=== PATIENT | male | born 1940 | race Caucasian/White ===

== ENCOUNTER 2021-10-06 13:28 | Outpatient (CLI) | payer MEDICARE | END 2021-10-06 13:29 | disposition home or self-care (01) | LOC: BICULT 13:28 | PROVIDERS: ATTEND Internal Medicine Nephrology | DX: Z01.818 Encounter for other preprocedural examination (principal) | CPT/HCPCS: 93970 ==

== ENCOUNTER 2021-12-08 08:18 | Day surgery (SDC) | payer MEDICARE ==
[2021-12-04 10:59] VITALS: BMI 23.4
[2021-12-08 10:09] VITALS: TEMP 97.1
[2021-12-08 10:41] VITALS: BP 155/65
[2021-12-08] MEDS ORDERED: Iopamidol 300 61% 50 ML VIAL FS ONE (15:57)
== END 2021-12-08 11:30 | disposition home or self-care (01) ==
LOC: SPEC 08:18
PROVIDERS: ATTEND Specialist
PROC: B51W1ZZ Fluoroscopy of Dialysis Shunt/Fistula using Low Osmolar Contrast (ICD-10-PCS; principal; 2021-12-08)
DX: T82.590A Other mechanical complication of surgically created arteriovenous fistula, initial encounter (principal); I12.0 Hypertensive chronic kidney disease with stage 5 chronic kidney disease or end stage renal disease; E11.22 Type 2 diabetes mellitus with diabetic chronic kidney disease; N18.6 End stage renal disease; Z79.02 Long term (current) use of antithrombotics/antiplatelets; Z79.4 Long term (current) use of insulin; Z79.899 Other long term (current) drug therapy; Z88.5 Allergy status to narcotic agent; Z95.0 Presence of cardiac pacemaker; Z99.2 Dependence on renal dialysis
CPT/HCPCS: 36901; Q9967

== ENCOUNTER 2022-01-26 08:09 | Day surgery (SDC) | payer MEDICARE ==
[2022-01-21 12:19] VITALS: BMI 23.5
[2022-01-26] MEDS ORDERED: Heparin 1,000 UNITS/ML VIAL ONE (08:58)
[2022-01-26 09:00] VITALS: BP 133/61; TEMP 97.9
[2022-01-26] MEDS ORDERED: Fentanyl 100 MCG/2 ML VIAL ONE (09:06)
[2022-01-26] MEDS ORDERED: Lidocaine 1% MPF 2 ML VIAL ONE (09:06)
[2022-01-26] MEDS ORDERED: Sodium Bicarbonate 2.5 MEQ/5 ML VIAL ONE (09:06)
== END 2022-01-26 11:45 | disposition home or self-care (01) ==
LOC: SPEC 08:09
PROVIDERS: ATTEND Specialist
PROC: 05L Upper Veins, Occlusion (ICD-10-PCS; principal; 2022-01-26)
DX: T82.590A Other mechanical complication of surgically created arteriovenous fistula, initial encounter (principal); N18.6 End stage renal disease; Z88.5 Allergy status to narcotic agent; Z99.2 Dependence on renal dialysis
CPT/HCPCS: 36901; 75898; J1644; J3010

== ENCOUNTER 2022-07-31 14:48 | Inpatient (IN) | payer MEDICARE ==
[2022-07-31 18:08] VITALS: BMI 26.9
[2022-07-31] MEDS ORDERED: cloNIDine 0.2 MG TAB PO PRN (18:38)
[2022-07-31] MEDS ORDERED: ALPRAZolam 0.25 MG TAB PO PRN (18:38)
[2022-07-31] MEDS ORDERED: Vancomycin HCl 1 GM in Sodium Chloride 0.9% 250 ML 250 ML IVPB SCH (18:45)
[2022-07-31] MEDS ORDERED: HumaLOG 300 UNITS/3 ML VIAL SC PRN (18:52)
[2022-07-31] MEDS ORDERED: Dextrose 5% in Water 1,000 ML IV PRN (18:52)
[2022-07-31] MEDS ORDERED: Dextrose 50% Abboject 50 ML SYRINGE SLOW IVP PRN (18:52)
[2022-07-31] MEDS ORDERED: Vancomycin Diaylsis Sliding Scale (Wt 71-99) FS SCH (19:30)
[2022-07-31] MEDS: Cefepime 0.5 GM, Admixture Fee 1 EACH in Sodium Chloride 0.9% 100 ML IVPB SCH (20:40)
[2022-07-31] MEDS: Amlodipine 5 MG TAB PO SCH (20:41)
[2022-07-31] MEDS: Famotidine 20 MG TAB PO SCH (20:41)
[2022-07-31] MEDS: Sevelamer Carbonate 800 MG TAB PO SCH (20:41)
[2022-07-31] MEDS: hydrOXYzine 25 MG TAB PO SCH (20:42)
[2022-07-31] MEDS: Losartan 25 MG TAB PO SCH (20:42)
[2022-07-31] MEDS: Insulin Glargine 30 UNITS/0.3 ML VIAL SC SCH (20:42)
[2022-07-31] MEDS: Heparin 5,000 UNITS/ML VIAL SC SCH (20:42)
[2022-07-31] MEDS: Polyethylene Glycol 3350 17 GM Packet PO SCH (20:43)
[2022-07-31] MEDS ORDERED: Vancomycin HCl 750 MG in Sodium Chloride 0.9% 250 ML 250 ML IVPB SCH (21:00)
[2022-08-01] MEDS: Acetaminophen 325 MG TAB PO PRN (02:07)
[2022-08-01] MEDS: Sevelamer Carbonate 800 MG TAB PO SCH ×3 (08:02→17:35)
[2022-08-01] MEDS: Clopidogrel Bisulfate 75 MG TAB PO SCH (08:03)
[2022-08-01] MEDS: hydrOXYzine 25 MG TAB PO SCH ×4 (08:06→20:42)
[2022-08-01] MEDS: Losartan 25 MG TAB PO SCH ×2 (08:07→20:42)
[2022-08-01] MEDS: Heparin 5,000 UNITS/ML VIAL SC SCH ×3 (08:14→20:42)
[2022-08-01] MEDS: Polyethylene Glycol 3350 17 GM Packet PO SCH ×2 (08:14→20:43)
[2022-08-01 08:48] LABS: Hemoglobin 10.6 g/dL (14.0-18.0); Mean Corpuscular HGB CONC 32.4 g/dL (32.0-36.0); Mean Platelet Volume 10.2 fL (7.4-10.4); Platelet Count 134 10x3/uL (130-400); RBC Distribution Width 14.5 % (11.5-14.5); Red Blood Cell (RBC) Count 3.12 mill/uL (4.70-6.10); White Blood Cell (WBC) Count 6.7 10x3/uL (4.8-10.8)
[2022-08-01 09:05] LABS: Anion Gap 20 mmol/L (10-20); BUN (Urea Nitrogen) 61 mg/dL (8.4-25.7); Calc. Creatinine Clearance 11 mL/min (70-130); Calcium 9.6 mg/dL (7.8-10.44); Carbon Dioxide 22 mmol/L (23-31); Chloride 95 mmol/L (98-107); Estimated GFR 10; Glucose 75 mg/dL (83-110); Sodium 131 mmol/L (136-145); Vancomycin, Random 21.2 ug/mL (See Comment)
[2022-08-01 09:14] LABS: #Basophils 0.1 thou/uL (0.0-0.2); #Eosinphils 0.2 thou/uL (0.0-0.7); #Lymphocytes 1.3 thou/uL (1.20-3.40); #Monocytes 0.8 thou/uL (0.11-0.59); #Neutrophils 4.3 thou/uL (1.40-6.50); %Basophils 0.8 % (0.0-1.0); %Eosinophils 2.6 % (0.0-10.0); %Monocytes 11.4 % (0.0-10.0); %Neutrophils 65.2 % (42.0-75.0); MDiff Complete? YES; Macrocytosis SLIGHT = 6-15 cells (100X) (0-5/hpf); Platelet Morphology Comment Appears Adequate; Polychromasia SLIGHT = 2-3 cells (100X) (0-2/hpf)
[2022-08-01 09:15] LABS: Critical Call Chemistry 2no.emm20915; Potassium 6.2 mmol/L (3.5-5.1)
[2022-08-01] MEDS ORDERED: Epoetin (ESRD) 20,000 UNITS/ML SC SCH (10:15)
[2022-08-01] MEDS: EPOETIN ALFA-EPBX (ESRD) 10,000 UNIT/ML VIAL SC SCH (14:57)
[2022-08-01] MEDS ORDERED: Vancomycin 250 MG in Sodium Chloride 0.9% 100 ML IVPB SCH (17:00)
[2022-08-01] MEDS: Cefepime 0.5 GM, Admixture Fee 1 EACH in Sodium Chloride 0.9% 100 ML IVPB SCH (20:39)
[2022-08-01] MEDS: Atorvastatin Calcium 10 MG TAB PO SCH (20:42)
[2022-08-01] MEDS: Amlodipine 5 MG TAB PO SCH (20:42)
[2022-08-01] MEDS: Insulin Glargine 30 UNITS/0.3 ML VIAL SC SCH (20:43)
[2022-08-01] MEDS: Famotidine 20 MG TAB PO SCH (20:43)
[2022-08-02 05:44] LABS: Anion Gap 14 mmol/L (10-20); BUN (Urea Nitrogen) 39 mg/dL (8.4-25.7); Calc. Creatinine Clearance 16 mL/min (70-130); Calcium 9.1 mg/dL (7.8-10.44); Carbon Dioxide 28 mmol/L (23-31); Chloride 99 mmol/L (98-107); Estimated GFR 16; Potassium 5.5 mmol/L (3.5-5.1); Sodium 135 mmol/L (136-145)
[2022-08-02 05:47] LABS: Glucose 35 mg/dL (83-110)
[2022-08-02] MEDS: Sevelamer Carbonate 800 MG TAB PO SCH ×3 (06:59→16:43)
[2022-08-02] MEDS: hydrOXYzine 25 MG TAB PO SCH (09:48)
[2022-08-02] MEDS: Clopidogrel Bisulfate 75 MG TAB PO SCH (09:48)
[2022-08-02] MEDS: Aspirin 81 mg Enteric Coated Tablet PO SCH (09:48)
[2022-08-02] MEDS: Polyethylene Glycol 3350 17 GM Packet PO SCH ×2 (09:48→20:09)
[2022-08-02] MEDS: Losartan 25 MG TAB PO SCH (09:48)
[2022-08-02] MEDS: Heparin 5,000 UNITS/ML VIAL SC SCH ×3 (09:50→20:09)
[2022-08-02 11:38] LABS: #Eosinphils 0.2 thou/uL (0.0-0.7); #Lymphocytes 1.4 thou/uL (1.20-3.40); #Monocytes 0.7 thou/uL (0.11-0.59); #Neutrophils 4.2 thou/uL (1.40-6.50); %Basophils 0.5 % (0.0-1.0); %Eosinophils 3.8 % (0.0-10.0); %Lymphocytes 20.8 % (21.0-51.0); Hemoglobin 9.1 g/dL (14.0-18.0); Mean Corpuscular HGB CONC 32.4 g/dL (32.0-36.0); Mean Corpuscular Hemoglobin 34.2 pg (27.0-31.0); Mean Platelet Volume 10.3 fL (7.4-10.4); Platelet Count 146 10x3/uL (130-400); RBC Distribution Width 14.8 % (11.5-14.5); Red Blood Cell (RBC) Count 2.67 mill/uL (4.70-6.10); White Blood Cell (WBC) Count 6.5 10x3/uL (4.8-10.8)
[2022-08-02 11:59] LABS: Anion Gap 17 mmol/L (10-20); BUN (Urea Nitrogen) 42 mg/dL (8.4-25.7); Calc. Creatinine Clearance 15 mL/min (70-130); Calcium 9.2 mg/dL (7.8-10.44); Carbon Dioxide 26 mmol/L (23-31); Chloride 96 mmol/L (98-107); Estimated GFR 15; Glucose 91 mg/dL (83-110); Potassium 5.6 mmol/L (3.5-5.1); Sodium 133 mmol/L (136-145)
[2022-08-02] MEDS: hydrALAZINE 25 MG TAB PO SCH ×2 (15:40→20:08)
[2022-08-02] MEDS: Cefepime 0.5 GM, Admixture Fee 1 EACH in Sodium Chloride 0.9% 100 ML IVPB SCH (20:06)
[2022-08-02] MEDS: Insulin Glargine 30 UNITS/0.3 ML VIAL SC SCH (20:08)
[2022-08-02] MEDS: Atorvastatin Calcium 10 MG TAB PO SCH (20:08)
[2022-08-02] MEDS: Amlodipine 5 MG TAB PO SCH (20:08)
[2022-08-02] MEDS: Famotidine 20 MG TAB PO SCH (20:08)
[2022-08-03 03:04] LABS: #Basophils 0.1 thou/uL (0.0-0.2); #Eosinphils 0.2 thou/uL (0.0-0.7); #Lymphocytes 1.5 thou/uL (1.20-3.40); #Monocytes 0.9 thou/uL (0.11-0.59); #Neutrophils 4.9 thou/uL (1.40-6.50); %Basophils 0.8 % (0.0-1.0); %Lymphocytes 19.8 % (21.0-51.0); %Monocytes 11.4 % (0.0-10.0); %Neutrophils 65.1 % (42.0-75.0); Hemoglobin 9.4 g/dL (14.0-18.0); Mean Corpuscular HGB CONC 32.7 g/dL (32.0-36.0); Mean Corpuscular Hemoglobin 34.4 pg (27.0-31.0); Mean Platelet Volume 9.8 fL (7.4-10.4); Platelet Count 149 10x3/uL (130-400); Red Blood Cell (RBC) Count 2.74 mill/uL (4.70-6.10); White Blood Cell (WBC) Count 7.5 10x3/uL (4.8-10.8)
[2022-08-03 04:07] LABS: Calcium 9.5 mg/dL (7.8-10.44); Chloride 93 mmol/L (98-107); Potassium 5.7 mmol/L (3.5-5.1); Sodium 131 mmol/L (136-145)
[2022-08-03 04:08] LABS: Glucose 74 mg/dL (83-110)
[2022-08-03 04:09] LABS: Anion Gap 20 mmol/L (10-20); Carbon Dioxide 24 mmol/L (23-31)
[2022-08-03 04:11] LABS: Calc. Creatinine Clearance 13 mL/min (70-130); Estimated GFR 13
[2022-08-03 04:12] LABS: BUN (Urea Nitrogen) 50 mg/dL (8.4-25.7)
[2022-08-03] MEDS ORDERED: Lidocaine 1% (PF) 30 ML VIAL ONE (06:12)
[2022-08-03] MEDS ORDERED: Heparin 10,000 UNITS/ 10 ML VIAL ONE (06:12)
[2022-08-03] MEDS ORDERED: Losartan 25 MG TAB PO SCH (09:00)
[2022-08-03] MEDS: hydrALAZINE 25 MG TAB PO SCH ×3 (10:08→21:48)
[2022-08-03] MEDS: Sevelamer Carbonate 800 MG TAB PO SCH ×3 (10:08→15:55)
[2022-08-03] MEDS: Clopidogrel Bisulfate 75 MG TAB PO SCH (10:09)
[2022-08-03] MEDS: Polyethylene Glycol 3350 17 GM Packet PO SCH ×2 (10:09→21:50)
[2022-08-03] MEDS: Aspirin 81 mg Enteric Coated Tablet PO SCH (10:09)
[2022-08-03] MEDS: Heparin 5,000 UNITS/ML VIAL SC SCH ×3 (10:14→21:59)
[2022-08-03 14:12] LABS: Hemoglobin 9.3 g/dL (14.0-18.0)
[2022-08-03 14:30] LABS: ALT (SGPT) 11 U/L (8-55); AST (SGOT) 17 U/L (5-34); Albumin 3.4 g/dL (3.4-4.8); Alkaline Phosphatase 123 U/L (40-110); Anion Gap 16 mmol/L (10-20); BUN (Urea Nitrogen) 56 mg/dL (8.4-25.7); Bilirubin, Total 0.8 mg/dL (0.2-1.2); Calc. Creatinine Clearance 12 mL/min (70-130); Calcium 9.7 mg/dL (7.8-10.44); Carbon Dioxide 26 mmol/L (23-31); Chloride 94 mmol/L (98-107); Estimated GFR 12; Globulin 2.9 g/dL (2.4-3.5); Glucose 115 mg/dL (83-110); Protein, Total 6.3 g/dL (5.8-8.1); Sodium 130 mmol/L (136-145)
[2022-08-03 14:46] LABS: Potassium 6.3 mmol/L (3.5-5.1)
[2022-08-03] MEDS ORDERED: Amlodipine 5 MG TAB PO SCH (16:45)
[2022-08-03 21:24] LABS: Hemoglobin 9.2 g/dL (14.0-18.0)
[2022-08-03] MEDS: Cefepime 0.5 GM, Admixture Fee 1 EACH in Sodium Chloride 0.9% 100 ML IVPB SCH (21:45)
[2022-08-03] MEDS: Atorvastatin Calcium 10 MG TAB PO SCH (21:48)
[2022-08-03] MEDS: Famotidine 20 MG TAB PO SCH (21:48)
[2022-08-03] MEDS: Insulin Glargine 30 UNITS/0.3 ML VIAL SC SCH (21:49)
[2022-08-03 22:08] LABS: Hemoglobin A1c 5.4 % (4.0-6.0)
[2022-08-04 04:54] LABS: #Basophils 0.1 thou/uL (0.0-0.2); #Eosinphils 0.1 thou/uL (0.0-0.7); #Lymphocytes 1.1 thou/uL (1.20-3.40); #Monocytes 0.8 thou/uL (0.11-0.59); #Neutrophils 4.7 thou/uL (1.40-6.50); %Basophils 0.8 % (0.0-1.0); %Eosinophils 2.1 % (0.0-10.0); %Lymphocytes 16.2 % (21.0-51.0); %Monocytes 11.3 % (0.0-10.0); %Neutrophils 69.6 % (42.0-75.0); Mean Corpuscular HGB CONC 31.8 g/dL (32.0-36.0); Mean Corpuscular Hemoglobin 33.4 pg (27.0-31.0); Platelet Count 146 10x3/uL (130-400); RBC Distribution Width 15.2 % (11.5-14.5); Red Blood Cell (RBC) Count 2.38 mill/uL (4.70-6.10); White Blood Cell (WBC) Count 6.7 10x3/uL (4.8-10.8)
[2022-08-04 05:13] LABS: Anion Gap 15 mmol/L (10-20); BUN (Urea Nitrogen) 36 mg/dL (8.4-25.7); Calc. Creatinine Clearance 15 mL/min (70-130); Calcium 8.9 mg/dL (7.8-10.44); Carbon Dioxide 30 mmol/L (23-31); Chloride 96 mmol/L (98-107); Estimated GFR 16; Glucose 174 mg/dL (83-110); Sodium 136 mmol/L (136-145)
[2022-08-04 07:48] LABS: Vancomycin, Random 16.7 ug/mL (See Comment)
[2022-08-04] MEDS: hydrALAZINE 25 MG TAB PO SCH ×3 (09:10→20:57)
[2022-08-04] MEDS: Heparin 5,000 UNITS/ML VIAL SC SCH ×2 (09:10→17:19)
[2022-08-04] MEDS: Sevelamer Carbonate 800 MG TAB PO SCH ×3 (09:10→16:53)
[2022-08-04] MEDS: Polyethylene Glycol 3350 17 GM Packet PO SCH ×2 (09:11→20:57)
[2022-08-04] MEDS ORDERED: Vancomycin Hemodialysis Sliding Scale FS SCH (10:00)
[2022-08-04] MEDS: Clopidogrel Bisulfate 75 MG TAB PO SCH (12:44)
[2022-08-04] MEDS: Aspirin 81 mg Enteric Coated Tablet PO SCH (12:44)
[2022-08-04] MEDS: Cefepime 0.5 GM, Admixture Fee 1 EACH in Sodium Chloride 0.9% 100 ML IVPB SCH (20:57)
[2022-08-04] MEDS: Amlodipine 5 MG TAB PO SCH (20:58)
[2022-08-04] MEDS: Atorvastatin Calcium 10 MG TAB PO SCH (20:58)
[2022-08-04] MEDS: Famotidine 20 MG TAB PO SCH (20:58)
[2022-08-05] MEDS: Insulin Glargine 30 UNITS/0.3 ML VIAL SC SCH (04:41)
[2022-08-05 04:49] LABS: #Eosinphils 0.1 thou/uL (0.0-0.7); #Lymphocytes 1.7 thou/uL (1.20-3.40); #Monocytes 0.8 thou/uL (0.11-0.59); #Neutrophils 4.1 thou/uL (1.40-6.50); %Basophils 0.7 % (0.0-1.0); %Eosinophils 1.8 % (0.0-10.0); %Lymphocytes 25.1 % (21.0-51.0); %Monocytes 11.8 % (0.0-10.0); %Neutrophils 60.6 % (42.0-75.0); Mean Corpuscular Hemoglobin 34.7 pg (27.0-31.0); Mean Platelet Volume 10.1 fL (7.4-10.4); Platelet Count 159 10x3/uL (130-400); RBC Distribution Width 15.5 % (11.5-14.5); Red Blood Cell (RBC) Count 2.01 mill/uL (4.70-6.10); White Blood Cell (WBC) Count 6.8 10x3/uL (4.8-10.8)
[2022-08-05 05:29] LABS: Anion Gap 18 mmol/L (10-20); BUN (Urea Nitrogen) 30 mg/dL (8.4-25.7); Calc. Creatinine Clearance 17 mL/min (70-130); Calcium 9.5 mg/dL (7.8-10.44); Carbon Dioxide 28 mmol/L (23-31); Chloride 97 mmol/L (98-107); Estimated GFR 20; Glucose 131 mg/dL (83-110); Potassium 4.5 mmol/L (3.5-5.1); Sodium 138 mmol/L (136-145)
[2022-08-05] MEDS: Sevelamer Carbonate 800 MG TAB PO SCH ×5 (09:50→17:34)
[2022-08-05] MEDS: hydrALAZINE 25 MG TAB PO SCH ×3 (09:50→20:53)
[2022-08-05] MEDS: Folic Acid/Vit B Comp W-C PO SCH (09:50)
[2022-08-05] MEDS: Polyethylene Glycol 3350 17 GM Packet PO SCH ×2 (09:56→21:13)
[2022-08-05] MEDS: Aspirin 81 mg Enteric Coated Tablet PO SCH (10:38)
[2022-08-05] MEDS: Clopidogrel Bisulfate 75 MG TAB PO SCH (10:38)
[2022-08-05] MEDS ORDERED: EPINEPHrine 1 MG/ML AMP IVP PRN (15:52)
[2022-08-05] MEDS ORDERED: diphenhydrAMINE 25 MG CAP PO SCH (16:00)
[2022-08-05] MEDS ORDERED: GoLYTELY 4,000 ml Bottle PO SCH (16:15)
[2022-08-05] MEDS: Atorvastatin Calcium 10 MG TAB PO SCH (20:53)
[2022-08-05] MEDS: Amlodipine 5 MG TAB PO SCH (20:54)
[2022-08-05] MEDS: Cefepime 0.5 GM, Admixture Fee 1 EACH in Sodium Chloride 0.9% 100 ML IVPB SCH (21:00)
[2022-08-05 22:31] LABS: Hemoglobin 7.5 g/dL (14.0-18.0)
[2022-08-06 01:55] LABS: #Basophils 0.1 thou/uL (0.0-0.2); #Eosinphils 0.1 thou/uL (0.0-0.7); #Lymphocytes 1.5 thou/uL (1.20-3.40); #Neutrophils 4.4 thou/uL (1.40-6.50); %Basophils 0.7 % (0.0-1.0); %Lymphocytes 21.5 % (21.0-51.0); %Monocytes 13.8 % (0.0-10.0); %Neutrophils 61.9 % (42.0-75.0); Mean Corpuscular Hemoglobin 34.6 pg (27.0-31.0); Mean Platelet Volume 9.5 fL (7.4-10.4); Platelet Count 154 10x3/uL (130-400); RBC Distribution Width 16.1 % (11.5-14.5); Red Blood Cell (RBC) Count 2.01 mill/uL (4.70-6.10); White Blood Cell (WBC) Count 7.1 10x3/uL (4.8-10.8)
[2022-08-06 02:25] LABS: Anion Gap 21 mmol/L (10-20); BUN (Urea Nitrogen) 39 mg/dL (8.4-25.7); Calc. Creatinine Clearance 14 mL/min (70-130); Calcium 8.9 mg/dL (7.8-10.44); Carbon Dioxide 25 mmol/L (23-31); Chloride 96 mmol/L (98-107); Estimated GFR 16; Glucose 134 mg/dL (83-110); Potassium 4.2 mmol/L (3.5-5.1); Sodium 138 mmol/L (136-145)
[2022-08-06] MEDS ORDERED: Lidocaine 1% PF 5 ML VIAL ONE (10:43)
[2022-08-06] MEDS ORDERED: PROPOFOL 200 MG/20 ML VIAL ONE (10:43)
[2022-08-06] MEDS: Sevelamer Carbonate 800 MG TAB PO SCH ×2 (14:01→18:33)
[2022-08-06] MEDS: Folic Acid/Vit B Comp W-C PO SCH (14:02)
[2022-08-06] MEDS: hydrALAZINE 25 MG TAB PO SCH ×3 (14:02→21:04)
[2022-08-06] MEDS: Clopidogrel Bisulfate 75 MG TAB PO SCH (14:02)
[2022-08-06] MEDS: Polyethylene Glycol 3350 17 GM Packet PO SCH ×2 (14:03→21:24)
[2022-08-06 18:25] LABS: Hemoglobin 10.2 g/dL (14.0-18.0); Platelet Count 116 10x3/uL (130-400)
[2022-08-06 18:34] LABS: Vancomycin, Random 10.3 ug/mL (See Comment)
[2022-08-06] MEDS: Cefepime 0.5 GM, Admixture Fee 1 EACH in Sodium Chloride 0.9% 100 ML IVPB SCH (21:03)
[2022-08-06] MEDS: Amlodipine 5 MG TAB PO SCH (21:04)
[2022-08-06] MEDS: Atorvastatin Calcium 10 MG TAB PO SCH (21:05)
[2022-08-06] MEDS ORDERED: Vancomycin HCl 750 MG in Sodium Chloride 0.9% 250 ML 250 ML IVPB SCH (22:30)
[2022-08-06] MEDS: Acetaminophen 325 MG TAB PO PRN (22:58)
[2022-08-06 23:52] LABS: Hemoglobin 10.1 g/dL (14.0-18.0); Platelet Count 117 10x3/uL (130-400)
[2022-08-07 04:24] LABS: #Eosinphils 0.1 thou/uL (0.0-0.7); #Lymphocytes 1.4 thou/uL (1.20-3.40); #Monocytes 0.9 thou/uL (0.11-0.59); #Neutrophils 4.7 thou/uL (1.40-6.50); %Basophils 0.3 % (0.0-1.0); %Eosinophils 1.9 % (0.0-10.0); %Lymphocytes 19.1 % (21.0-51.0); %Neutrophils 65.8 % (42.0-75.0); Hemoglobin 10.2 g/dL (14.0-18.0); Mean Corpuscular Hemoglobin 33.8 pg (27.0-31.0); Mean Corpuscular Volume 99.6 fl (78.0-98.0); Mean Platelet Volume 9.3 fL (7.4-10.4); Platelet Count 120 10x3/uL (130-400); RBC Distribution Width 15.4 % (11.5-14.5); Red Blood Cell (RBC) Count 3.01 mill/uL (4.70-6.10); White Blood Cell (WBC) Count 7.2 10x3/uL (4.8-10.8)
[2022-08-07 04:46] LABS: Anion Gap 16 mmol/L (10-20); BUN (Urea Nitrogen) 21 mg/dL (8.4-25.7); Calc. Creatinine Clearance 19 mL/min (70-130); Calcium 8.9 mg/dL (7.8-10.44); Carbon Dioxide 25 mmol/L (23-31); Chloride 99 mmol/L (98-107); Estimated GFR 22; Glucose 171 mg/dL (83-110); Potassium 3.5 mmol/L (3.5-5.1); Sodium 136 mmol/L (136-145)
[2022-08-07] MEDS: Folic Acid/Vit B Comp W-C PO SCH (09:07)
[2022-08-07] MEDS: Clopidogrel Bisulfate 75 MG TAB PO SCH (09:08)
[2022-08-07] MEDS: hydrALAZINE 25 MG TAB PO SCH ×3 (09:13→21:08)
[2022-08-07] MEDS: Sevelamer Carbonate 800 MG TAB PO SCH ×3 (09:13→17:53)
[2022-08-07] MEDS: Polyethylene Glycol 3350 17 GM Packet PO SCH ×2 (09:15→21:10)
[2022-08-07] MEDS ORDERED: Sodium Bicarbonate 2.5 MEQ/5 ML VIAL ONE (11:12)
[2022-08-07] MEDS ORDERED: Lidocaine 1% PF 5 ML VIAL ONE (11:12)
[2022-08-07] MEDS: HumaLOG 300 UNITS/3 ML VIAL SC PRN ×4 (14:23→22:16)
[2022-08-07 19:05] LABS: Hemoglobin 9.8 g/dL (14.0-18.0); Platelet Count 134 10x3/uL (130-400)
[2022-08-07] MEDS: Amlodipine 5 MG TAB PO SCH (21:06)
[2022-08-07] MEDS: Atorvastatin Calcium 10 MG TAB PO SCH (21:10)
[2022-08-08 05:16] LABS: Anion Gap 20 mmol/L (10-20); BUN (Urea Nitrogen) 37 mg/dL (8.4-25.7); Calc. Creatinine Clearance 14 mL/min (70-130); Calcium 9.2 mg/dL (7.8-10.44); Carbon Dioxide 24 mmol/L (23-31); Chloride 97 mmol/L (98-107); Estimated GFR 16; Glucose 61 mg/dL (83-110); Potassium 4.4 mmol/L (3.5-5.1); Sodium 137 mmol/L (136-145)
[2022-08-08 05:30] LABS: Hemoglobin 8.6 g/dL (14.0-18.0); Mean Corpuscular HGB CONC 33.4 g/dL (32.0-36.0); Mean Corpuscular Hemoglobin 33.8 pg (27.0-31.0); Platelet Count 129 10x3/uL (130-400); RBC Distribution Width 15.7 % (11.5-14.5); Red Blood Cell (RBC) Count 2.55 mill/uL (4.70-6.10); White Blood Cell (WBC) Count 9.8 10x3/uL (4.8-10.8)
[2022-08-08 05:51] LABS: Band 1 % (5-11); Eosinophils 4 % (0-10); Lymphocytes 21 % (21-51); MDiff Complete? YES; Macrocytosis SLIGHT = 6-15 cells (100X) (0-5/hpf); Monocytes 9 % (0-10); Neutrophil 65 % (42-75); Polychromasia SLIGHT = 2-3 cells (100X) (0-2/hpf)
[2022-08-08] MEDS: Sevelamer Carbonate 800 MG TAB PO SCH ×3 (07:44→17:00)
[2022-08-08] MEDS: Folic Acid/Vit B Comp W-C PO SCH (09:00)
[2022-08-08] MEDS ORDERED: Albumin 25% 25 GM/100 ML BOT IVPB SCH (10:00)
[2022-08-08] MEDS ORDERED: Midodrine HCl 5 MG TAB PO SCH (10:58)
[2022-08-08] MEDS: hydrALAZINE 25 MG TAB PO SCH (11:14)
[2022-08-08] MEDS: Acetaminophen 325 MG TAB PO PRN (11:15)
[2022-08-08] MEDS: Polyethylene Glycol 3350 17 GM Packet PO SCH ×2 (11:18→21:55)
[2022-08-08] MEDS ORDERED: hydrALAZINE 25 MG TAB PO SCH (12:58)
[2022-08-08 13:21] LABS: Hemoglobin 6.9 g/dL (14.0-18.0); Platelet Count 88 10x3/uL (130-400)
[2022-08-08 13:33] LABS: INR-International Normal Ratio 1.2; PTT 40.6 sec (22.9-36.1); Prothrombin Time 15.7 sec (12.0-14.7)
[2022-08-08 13:45] LABS: ALT (SGPT) 11 U/L (8-55); AST (SGOT) 18 U/L (5-34); Albumin 3.2 g/dL (3.4-4.8); Alkaline Phosphatase 82 U/L (40-110); Bilirubin, Direct 0.4 mg/dL (0.1-0.3); Bilirubin, Total 0.8 mg/dL (0.2-1.2); Protein, Total 5.3 g/dL (5.8-8.1)
[2022-08-08] MEDS ORDERED: fentaNYL PF 100 MCG/2 ML SYRINGE ONE (14:17)
[2022-08-08 14:50] LABS: Iron 53 ug/dL (65-175); Iron Binding Capacity, Total 163 mcg/dL (261-462)
[2022-08-08] MEDS: EPOETIN ALFA-EPBX (ESRD) 10,000 UNIT/ML VIAL SC SCH (15:16)
[2022-08-08] MEDS ORDERED: ISOVUE-370 76%-LOCM 1 ML ONE (15:18)
[2022-08-08] MEDS ORDERED: NOREPINEPHRINE 8 MG/250 ML-D5W 250 ML IVPB SCH (19:15)
[2022-08-08 19:47] LABS: #Eosinphils 0.2 thou/uL (0.0-0.7); #Lymphocytes 1.4 thou/uL (1.20-3.40); #Monocytes 0.7 thou/uL (0.11-0.59); #Neutrophils 3.6 thou/uL (1.40-6.50); %Basophils 0.7 % (0.0-1.0); %Monocytes 12.4 % (0.0-10.0); %Neutrophils 59.9 % (42.0-75.0); Hemoglobin 6.5 g/dL (14.0-18.0); Mean Corpuscular HGB CONC 34.4 g/dL (32.0-36.0); Mean Corpuscular Hemoglobin 34.8 pg (27.0-31.0); Mean Platelet Volume 9.9 fL (7.4-10.4); Platelet Count 85 10x3/uL (130-400); RBC Distribution Width 15.8 % (11.5-14.5); Red Blood Cell (RBC) Count 1.86 mill/uL (4.70-6.10); White Blood Cell (WBC) Count 5.9 10x3/uL (4.8-10.8)
[2022-08-08] MEDS: Clopidogrel Bisulfate 75 MG TAB PO SCH (20:11)
[2022-08-08] MEDS ORDERED: Lactated Ringer's 500 ML IV SCH (20:15)
[2022-08-08] MEDS: Atorvastatin Calcium 10 MG TAB PO SCH (21:55)
[2022-08-09 00:19] LABS: Hemoglobin 7.7 g/dL (14.0-18.0)
[2022-08-09 04:11] LABS: SARS-CoV-2 NAA Rapid Test Not Detected (NotDetected)
[2022-08-09 05:03] LABS: Hemoglobin 6.9 g/dL (14.0-18.0); Mean Corpuscular HGB CONC 33.4 g/dL (32.0-36.0); Mean Corpuscular Hemoglobin 32.8 pg (27.0-31.0); Mean Corpuscular Volume 98.2 fl (78.0-98.0); Mean Platelet Volume 9.9 fL (7.4-10.4); Platelet Count 89 10x3/uL (130-400); RBC Distribution Width 16.9 % (11.5-14.5)
[2022-08-09 05:07] LABS: Anion Gap 14 mmol/L (10-20); BUN (Urea Nitrogen) 27 mg/dL (8.4-25.7); Calc. Creatinine Clearance 22 mL/min (70-130); Calcium 8.2 mg/dL (7.8-10.44); Carbon Dioxide 26 mmol/L (23-31); Chloride 103 mmol/L (98-107); Estimated GFR 27; Glucose 133 mg/dL (83-110); Sodium 139 mmol/L (136-145)
[2022-08-09 05:47] LABS: Anisocytosis SLIGHT = 6-15 cells (100X) (0-5/hpf); Eosinophils 2 % (0-10); Lymphocytes 15 % (21-51); MDiff Complete? YES; Monocytes 6 % (0-10); Neutrophil 77 % (42-75); Platelet Morphology Comment Appears Decreased; Polychromasia SLIGHT = 2-3 cells (100X) (0-2/hpf); White Blood Cell (WBC) Count 5.6 10x3/uL (4.8-10.8)
[2022-08-09] MEDS: Sevelamer Carbonate 800 MG TAB PO SCH ×3 (07:53→18:49)
[2022-08-09] MEDS: Folic Acid/Vit B Comp W-C PO SCH (08:08)
[2022-08-09] MEDS: Polyethylene Glycol 3350 17 GM Packet PO SCH ×2 (08:08→22:26)
[2022-08-09 09:57] VITALS: BP 136/69
[2022-08-09 13:07] LABS: Hemoglobin 9.2 g/dL (14.0-18.0); Platelet Count 94 10x3/uL (130-400)
[2022-08-09 13:26] LABS: INR-International Normal Ratio 1.3; PTT 37.8 sec (22.9-36.1); Prothrombin Time 16.8 sec (12.0-14.7)
[2022-08-09 17:10] LABS: Platelet Count 98 10x3/uL (130-400)
[2022-08-09] MEDS: Atorvastatin Calcium 10 MG TAB PO SCH (20:32)
[2022-08-09 21:07] VITALS: TEMP 97
[2022-08-09 22:07] LABS: Hemoglobin 8.5 g/dL (14.0-18.0); Platelet Count 112 10x3/uL (130-400)
== END 2022-08-09 22:18 | disposition short-term general hospital (02) | DRG 299 ==
LOC: 2NO 17:20 → CCU 08-08 19:25 → IMCU/EMU 08-09 10:38
PROVIDERS: ADMIT Family Medicine; ATTEND Family Medicine
PROC: 5A1D70Z Performance of Urinary Filtration, Intermittent, Less than 6 Hours Per Day (ICD-10-PCS; principal; 2022-08-01)
PROC: 30233N1 Transfusion of Nonautologous Red Blood Cells into Peripheral Vein, Percutaneous Approach (ICD-10-PCS; 2022-08-05)
PROC: 0DJD8ZZ Inspection of Lower Intestinal Tract, Via Natural or Artificial Opening Endoscopic (ICD-10-PCS; 2022-08-05)
PROC: B51W1ZZ Fluoroscopy of Dialysis Shunt/Fistula using Low Osmolar Contrast (ICD-10-PCS; 2022-08-07)
PROC: 0DB68ZX Excision of Stomach, Via Natural or Artificial Opening Endoscopic, Diagnostic (ICD-10-PCS; 2022-08-08)
PROC: 06HY33Z Insertion of Infusion Device into Lower Vein, Percutaneous Approach (ICD-10-PCS; 2022-08-08)
DX: E11.52 Type 2 diabetes mellitus with diabetic peripheral angiopathy with gangrene (principal); N18.6 End stage renal disease; L03.116 Cellulitis of left lower limb; I13.2 Hypertensive heart and chronic kidney disease with heart failure and with stage 5 chronic kidney disease, or end stage renal disease; D62 Acute posthemorrhagic anemia; K92.1 Melena; I95.89 Other hypotension; Z20.822 Contact with and (suspected) exposure to COVID-19; K44.9 Diaphragmatic hernia without obstruction or gangrene; K74.60 Unspecified cirrhosis of liver; R13.10 Dysphagia, unspecified; E11.22 Type 2 diabetes mellitus with diabetic chronic kidney disease; E78.5 Hyperlipidemia, unspecified; E87.5 Hyperkalemia; D63.1 Anemia in chronic kidney disease; I25.10 Atherosclerotic heart disease of native coronary artery without angina pectoris; I50.9 Heart failure, unspecified; K31.89 Other diseases of stomach and duodenum; Z99.2 Dependence on renal dialysis; Z95.828 Presence of other vascular implants and grafts; Z88.5 Allergy status to narcotic agent; Z79.899 Other long term (current) drug therapy; Z79.4 Long term (current) use of insulin; Z79.02 Long term (current) use of antithrombotics/antiplatelets
CPT/HCPCS: 36415; 36416; 36430; 36901; 71045; 74177; 76705; 78278; 80048; 80076; 80202; 82105; 82728; 83036; 83540; 83550; 83880; 85014; 85018; 85025; 85384; 85610; 85730; 86850; 86900; 86901; 88305; 90935; A9560; G0257; J0692; J1644; J1815; J2001; J2704; J3370; J3371; J3490; J7050; J7120; P9016; Q5105; Q9966; U0002

== ENCOUNTER 2022-08-15 08:51 | Inpatient (IN) | payer MEDICARE ==
[2022-08-15 17:05] VITALS: BMI 26.4
[2022-08-15] MEDS ORDERED: HumaLOG 300 UNITS/3 ML VIAL SC PRN ×2 (19:35)
[2022-08-15] MEDS ORDERED: Ondansetron ODT 4 MG TAB PO PRN (19:35)
[2022-08-15] MEDS ORDERED: Ondansetron PF 4 MG/2 ML Vial IVP PRN (19:35)
[2022-08-15] MEDS ORDERED: Dextrose 5% in Water 1,000 ML IV PRN (19:35)
[2022-08-15] MEDS ORDERED: Dextrose 50% Abboject 50 ML SYRINGE SLOW IVP PRN (19:35)
[2022-08-15] MEDS ORDERED: Sodium Chloride 0.9% 1,000 ML IV SCH (19:45)
[2022-08-15 20:06] LABS: Hemoglobin 9.5 g/dL (14.0-18.0); Mean Corpuscular Volume 99.4 fl (78.0-98.0); Red Blood Cell (RBC) Count 2.98 mill/uL (4.70-6.10); White Blood Cell (WBC) Count 6.8 10x3/uL (4.8-10.8)
[2022-08-15 20:20] LABS: Anion Gap 14 mmol/L (10-20); BUN (Urea Nitrogen) 17 mg/dL (8.4-25.7); Calc. Creatinine Clearance 18 mL/min (70-130); Calcium 8.8 mg/dL (7.8-10.44); Carbon Dioxide 26 mmol/L (23-31); Chloride 100 mmol/L (98-107); Estimated GFR 20; Glucose 162 mg/dL (83-110); Potassium 3.8 mmol/L (3.5-5.1); Sodium 136 mmol/L (136-145)
[2022-08-15] MEDS: traMADol HCl 50 MG TAB PO PRN (20:27)
[2022-08-15] MEDS: Insulin Glargine 30 UNITS/0.3 ML VIAL SC SCH (20:44)
[2022-08-15 20:45] LABS: #Eosinphils 0.2 thou/uL (0.0-0.7); #Monocytes 0.8 thou/uL (0.11-0.59); #Neutrophils 4.7 thou/uL (1.40-6.50); %Basophils 0.5 % (0.0-1.0); %Eosinophils 3.6 % (0.0-10.0); %Lymphocytes 14.3 % (21.0-51.0); %Monocytes 11.6 % (0.0-10.0); Anisocytosis MODERATE=16-30 cells (100X) (0-5/hpf); Basophilic Stippling SLIGHT = 1-2 cells (100X) (None Seen); MDiff Complete? YES; Macrocytosis SLIGHT = 6-15 cells (100X) (0-5/hpf); Mean Corpuscular HGB CONC 32.2 g/dL (32.0-36.0); Mean Platelet Volume 10.8 fL (7.4-10.4); Ovalocytes SLIGHT = 2-5 cells (100X) (0-1/hpf); Platelet Count 79 10x3/uL (130-400); Platelet Morphology Comment Appears Decreased; Polychromasia SLIGHT = 2-3 cells (100X) (0-2/hpf); RBC Distribution Width 22.3 % (11.5-14.5); Target Cells SLIGHT = 2-5 cells (100X) (0-1/hpf)
[2022-08-16] MEDS: Sevelamer Carbonate 800 MG TAB PO SCH ×3 (08:47→17:33)
[2022-08-16 15:21] LABS: Cardiac Risk 1.9 (Less than 4.5)
[2022-08-16] MEDS: Insulin Glargine 30 UNITS/0.3 ML VIAL SC SCH (20:52)
[2022-08-17] MEDS: Sevelamer Carbonate 800 MG TAB PO SCH ×3 (08:14→16:50)
[2022-08-17] MEDS ORDERED: Epoetin (ESRD) 20,000 UNITS/ML MDV SC SCH (09:30)
[2022-08-17 12:28] LABS: #Eosinphils 0.2 thou/uL (0.0-0.7); #Lymphocytes 0.9 thou/uL (1.20-3.40); #Monocytes 0.3 thou/uL (0.11-0.59); #Neutrophils 4.3 thou/uL (1.40-6.50); %Basophils 0.4 % (0.0-1.0); %Eosinophils 3.2 % (0.0-10.0); %Lymphocytes 15.6 % (21.0-51.0); %Monocytes 5.2 % (0.0-10.0); %Neutrophils 75.7 % (42.0-75.0); Hemoglobin 9.1 g/dL (14.0-18.0); Mean Corpuscular Hemoglobin 32.2 pg (27.0-31.0); Mean Platelet Volume 10.3 fL (7.4-10.4); Platelet Count 95 10x3/uL (130-400); RBC Distribution Width 21.8 % (11.5-14.5); Red Blood Cell (RBC) Count 2.82 mill/uL (4.70-6.10); White Blood Cell (WBC) Count 5.7 10x3/uL (4.8-10.8)
[2022-08-17 12:50] LABS: Anion Gap 10 mmol/L (10-20); BUN (Urea Nitrogen) 18 mg/dL (8.4-25.7); Calc. Creatinine Clearance 20 mL/min (70-130); Calcium 8.6 mg/dL (7.8-10.44); Carbon Dioxide 29 mmol/L (23-31); Chloride 102 mmol/L (98-107); Estimated GFR 22; Glucose 115 mg/dL (83-110); Potassium 3.4 mmol/L (3.5-5.1); Sodium 138 mmol/L (136-145)
[2022-08-17 13:10] LABS: HBSAB Concentration Less than 8.00 mIU/mL; HBSAg Index 0.22 S/CO (0-0.99); Hep B Core Total Ab Non-Reactive (NonReactive); Hep B Core Total Index 0.09 S/CO (0-0.79); Hep B Surf AB Non-Reactive (NonReactive); Hep B Surf Ag Non-Reactive S/CO (NonReactive); Hep C IgG Ab Non-Reactive (NonReactive); Hep C Index 0.06 S/CO (0-0.79)
[2022-08-17] MEDS: EPOETIN ALFA-EPBX (ESRD) 10,000 UNIT/ML VIAL SC SCH (16:51)
[2022-08-17] MEDS: hydrOXYzine 25 MG TAB PO SCH (21:45)
[2022-08-17] MEDS: Insulin Glargine 30 UNITS/0.3 ML VIAL SC SCH (21:46)
[2022-08-18 07:42] LABS: #Basophils 0.1 thou/uL (0.0-0.2); #Eosinphils 0.3 thou/uL (0.0-0.7); #Lymphocytes 1.2 thou/uL (1.20-3.40); #Monocytes 0.7 thou/uL (0.11-0.59); #Neutrophils 4.4 thou/uL (1.40-6.50); %Basophils 0.8 % (0.0-1.0); %Lymphocytes 17.8 % (21.0-51.0); %Monocytes 10.5 % (0.0-10.0); %Neutrophils 66.8 % (42.0-75.0); Anion Gap 11 mmol/L (10-20); BUN (Urea Nitrogen) 18 mg/dL (8.4-25.7); Calc. Creatinine Clearance 17 mL/min (70-130); Carbon Dioxide 30 mmol/L (23-31); Chloride 102 mmol/L (98-107); Estimated GFR 18; Hemoglobin 9.1 g/dL (14.0-18.0); Mean Corpuscular HGB CONC 30.7 g/dL (32.0-36.0); Mean Corpuscular Hemoglobin 31.5 pg (27.0-31.0); Mean Platelet Volume 10.3 fL (7.4-10.4); Platelet Count 118 10x3/uL (130-400); Potassium 3.5 mmol/L (3.5-5.1); RBC Distribution Width 21.9 % (11.5-14.5); Red Blood Cell (RBC) Count 2.89 mill/uL (4.70-6.10); Sodium 139 mmol/L (136-145); White Blood Cell (WBC) Count 6.6 10x3/uL (4.8-10.8)
[2022-08-18 07:48] LABS: Glucose 54 mg/dL (83-110)
[2022-08-18] MEDS: Sevelamer Carbonate 800 MG TAB PO SCH ×3 (08:07→16:15)
[2022-08-18] MEDS: hydrOXYzine 25 MG TAB PO SCH ×3 (08:24→20:45)
[2022-08-18] MEDS: Insulin Glargine 30 UNITS/0.3 ML VIAL SC SCH (20:45)
[2022-08-19] MEDS: hydrOXYzine 25 MG TAB PO SCH ×3 (08:07→20:42)
[2022-08-19] MEDS: Sevelamer Carbonate 800 MG TAB PO SCH ×3 (08:07→17:25)
[2022-08-19] MEDS ORDERED: Sodium Bicarbonate 2.5 MEQ/5 ML VIAL ONE (12:19)
[2022-08-19] MEDS ORDERED: Lidocaine 1% PF 5 ML VIAL ONE (12:19)
[2022-08-19] MEDS: Insulin Glargine 30 UNITS/0.3 ML VIAL SC SCH (20:42)
[2022-08-20] MEDS: Sevelamer Carbonate 800 MG TAB PO SCH ×3 (08:00→17:27)
[2022-08-20] MEDS: hydrOXYzine 25 MG TAB PO SCH ×3 (08:00→20:26)
[2022-08-20] MEDS: Acetaminophen 325 MG TAB PO PRN (20:26)
[2022-08-20] MEDS: traMADol HCl 50 MG TAB PO PRN (20:27)
[2022-08-20] MEDS: Insulin Glargine 30 UNITS/0.3 ML VIAL SC SCH (20:28)
[2022-08-21] MEDS: hydrOXYzine 25 MG TAB PO SCH ×3 (09:58→21:21)
[2022-08-21] MEDS: Sevelamer Carbonate 800 MG TAB PO SCH ×3 (09:58→18:20)
[2022-08-21] MEDS: Acetaminophen 325 MG TAB PO PRN (21:21)
[2022-08-21] MEDS: traMADol HCl 50 MG TAB PO PRN (21:21)
[2022-08-21] MEDS: Insulin Glargine 30 UNITS/0.3 ML VIAL SC SCH (21:22)
[2022-08-22] MEDS: hydrOXYzine 25 MG TAB PO SCH ×3 (08:06→21:34)
[2022-08-22] MEDS: Sevelamer Carbonate 800 MG TAB PO SCH ×2 (08:06→12:20)
[2022-08-22 12:03] LABS: ALT (SGPT) 18 U/L (8-55); AST (SGOT) 20 U/L (5-34); Alkaline Phosphatase 147 U/L (40-110); Anion Gap 10 mmol/L (10-20); BUN (Urea Nitrogen) 20 mg/dL (8.4-25.7); Bilirubin, Total 0.5 mg/dL (0.2-1.2); Calc. Creatinine Clearance 26 mL/min (70-130); Calcium 8.8 mg/dL (7.8-10.44); Carbon Dioxide 30 mmol/L (23-31); Chloride 100 mmol/L (98-107); Estimated GFR 30; Globulin 2.6 g/dL (2.4-3.5); Glucose 92 mg/dL (83-110); Potassium 4.1 mmol/L (3.5-5.1); Protein, Total 5.6 g/dL (5.8-8.1); Sodium 136 mmol/L (136-145)
[2022-08-22 12:04] LABS: Magnesium 1.8 mg/dL (1.6-2.6)
[2022-08-22 12:10] LABS: Phosphorus 1.4 mg/dL (2.3-4.7)
[2022-08-22 12:11] LABS: #Eosinphils 0.2 thou/uL (0.0-0.7); #Lymphocytes 0.8 thou/uL (1.20-3.40); #Monocytes 0.4 thou/uL (0.11-0.59); #Neutrophils 3.6 thou/uL (1.40-6.50); %Basophils 0.7 % (0.0-1.0); %Eosinophils 3.8 % (0.0-10.0); %Lymphocytes 15.5 % (21.0-51.0); %Monocytes 8.1 % (0.0-10.0); %Neutrophils 71.8 % (42.0-75.0); Mean Corpuscular HGB CONC 32.1 g/dL (32.0-36.0); Mean Corpuscular Hemoglobin 32.8 pg (27.0-31.0); Mean Platelet Volume 10.1 fL (7.4-10.4); Platelet Count 137 10x3/uL (130-400); Red Blood Cell (RBC) Count 2.74 mill/uL (4.70-6.10)
[2022-08-22] MEDS ORDERED: Sodium Phosphate 30 MMOL in Sodium Chloride 0.9% 250 ML 250 ML IVPB SCH (14:00)
[2022-08-22] MEDS: Insulin Glargine 30 UNITS/0.3 ML VIAL SC SCH (21:34)
[2022-08-23] MEDS: hydrOXYzine 25 MG TAB PO SCH ×3 (08:29→21:16)
[2022-08-23] MEDS ORDERED: diphenhydrAMINE 30 GM TUBE TOP PRN (09:06)
[2022-08-23] MEDS: traMADol HCl 50 MG TAB PO PRN (16:59)
[2022-08-23] MEDS: Insulin Glargine 30 UNITS/0.3 ML VIAL SC SCH (21:16)
[2022-08-24] MEDS: hydrOXYzine 25 MG TAB PO SCH ×2 (08:09→14:50)
[2022-08-24] MEDS ORDERED: Losartan 25 MG TAB PO SCH (09:00)
[2022-08-24] MEDS: EPOETIN ALFA-EPBX (ESRD) 10,000 UNIT/ML VIAL SC SCH (11:45)
[2022-08-24] MEDS: traMADol HCl 50 MG TAB PO PRN (11:49)
[2022-08-24] MEDS ORDERED: ALPRAZolam 0.25 MG TAB PO SCH ×2 (12:00→15:30)
[2022-08-24 13:18] VITALS: TEMP 97.7
[2022-08-24 16:16] VITALS: BP 112/56
== END 2022-08-24 16:14 | disposition short-term general hospital (02) | DRG 299 ==
LOC: T4-A 08:51
PROVIDERS: ADMIT Family Medicine; ATTEND Family Medicine
PROC: 5A1D70Z Performance of Urinary Filtration, Intermittent, Less than 6 Hours Per Day (ICD-10-PCS; 2022-08-17)
PROC: 0W9G3ZZ Drainage of Peritoneal Cavity, Percutaneous Approach (ICD-10-PCS; principal; 2022-08-19)
DX: E11.52 Type 2 diabetes mellitus with diabetic peripheral angiopathy with gangrene (principal); N18.6 End stage renal disease; I13.2 Hypertensive heart and chronic kidney disease with heart failure and with stage 5 chronic kidney disease, or end stage renal disease; I50.32 Chronic diastolic (congestive) heart failure; Z20.822 Contact with and (suspected) exposure to COVID-19; E11.22 Type 2 diabetes mellitus with diabetic chronic kidney disease; K21.9 Gastro-esophageal reflux disease without esophagitis; D63.1 Anemia in chronic kidney disease; E83.39 Other disorders of phosphorus metabolism; Z95.2 Presence of prosthetic heart valve; Z88.5 Allergy status to narcotic agent; Z99.2 Dependence on renal dialysis; Z79.899 Other long term (current) drug therapy; Z79.4 Long term (current) use of insulin; Z90.49 Acquired absence of other specified parts of digestive tract; Z90.89 Acquired absence of other organs; Z95.0 Presence of cardiac pacemaker; Z87.891 Personal history of nicotine dependence; Z83.3 Family history of diabetes mellitus
CPT/HCPCS: 36415; 36416; 49083; 80048; 80053; 80061; 83735; 83880; 84100; 85025; 86704; 90935; 97139; G0257; J1815; J7050; Q5105

== ENCOUNTER 2022-09-09 11:24 | Inpatient (IN) | payer MEDICARE ==
[~2022-09-09 11:24] MED LIST: Iopamidol-370 76% 500 ML MDV (1 ML CHARGE) ONE
[2022-09-09 12:22] LABS: #Basophils 0.1 thou/uL (0.0-0.2); #Eosinphils 0.4 thou/uL (0.0-0.7); #Lymphocytes 0.8 thou/uL (1.20-3.40); #Neutrophils 4.9 thou/uL (1.40-6.50); %Basophils 0.7 % (0.0-1.0); %Eosinophils 5.4 % (0.0-10.0); %Lymphocytes 11.4 % (21.0-51.0); %Monocytes 13.6 % (0.0-10.0); %Neutrophils 68.9 % (42.0-75.0); Hemoglobin 10.3 g/dL (14.0-18.0); Mean Corpuscular HGB CONC 32.3 g/dL (32.0-36.0); Mean Corpuscular Hemoglobin 33.9 pg (27.0-31.0); Mean Platelet Volume 10.3 fL (7.4-10.4); Platelet Count 134 10x3/uL (130-400); RBC Distribution Width 20.4 % (11.5-14.5); Red Blood Cell (RBC) Count 3.02 mill/uL (4.70-6.10); White Blood Cell (WBC) Count 7.1 10x3/uL (4.8-10.8)
[2022-09-09 12:38] LABS: ALT (SGPT) 16 U/L (8-55); AST (SGOT) 16 U/L (5-34); Albumin 3.3 g/dL (3.4-4.8); Alkaline Phosphatase 155 U/L (40-110); Anion Gap 17 mmol/L (10-20); BUN (Urea Nitrogen) 49 mg/dL (8.4-25.7); Bilirubin, Total 0.6 mg/dL (0.2-1.2); Calc. Creatinine Clearance 0 mL/min (70-130); Calcium 9.6 mg/dL (7.8-10.44); Carbon Dioxide 29 mmol/L (23-31); Chloride 97 mmol/L (98-107); Estimated GFR 13; Globulin 3.1 g/dL (2.4-3.5); Glucose 93 mg/dL (83-110); Lipase 17 U/L (8-78); Potassium 4.7 mmol/L (3.5-5.1); Protein, Total 6.4 g/dL (5.8-8.1); Sodium 138 mmol/L (136-145)
[2022-09-09] MEDS ORDERED: Cefepime 2 GM VIAL ONE (13:04)
[2022-09-09] MEDS ORDERED: Vancomycin 1.5 GRAM/300 ML BAG 1.5 GM in Premix Bag 1 BAG IVPB SCH (13:30)
[2022-09-09 13:52] LABS: RBC Count-Automated (BF) 100 /cu.mm; WBC/Nucleated-Auto (BF) 257 /cu.mm
[2022-09-09] MEDS ORDERED: Aspirin Chewable 81 MG TAB ONE (14:02)
[2022-09-09 15:02] LABS: CKMB 3.9 ng/mL (0-6.6)
[2022-09-09 16:26] LABS: BF Color Yellow; Body Fluid Source Ascites Body Fluid; Clarity Hazy (Clear); Tube # EDTA
[2022-09-09 16:28] LABS: BF Segmented Neutrophils 3 %; Cell Count Non Hematic 82 %; Lymphocytes 15 %
[2022-09-09] MEDS ORDERED: Ondansetron PF 4 MG/2 ML Vial IVP PRN (18:15)
[2022-09-09] MEDS ORDERED: Acetaminophen 325 MG TAB PO PRN (18:15)
[2022-09-09] MEDS ORDERED: Dextrose 50% Abboject 50 ML SYRINGE SLOW IVP PRN (18:15)
[2022-09-09] MEDS ORDERED: HumaLOG 300 UNITS/3 ML VIAL SC PRN ×2 (18:15)
[2022-09-09] MEDS ORDERED: Ondansetron ODT 4 MG TAB PO PRN (18:15)
[2022-09-09] MEDS ORDERED: Dextrose 5% in Water 1,000 ML IV PRN (18:15)
[2022-09-09 19:40] VITALS: BMI 26.6
[2022-09-09] MEDS ORDERED: Vancomycin Diaylsis Sliding Scale (Wt 71-99) FS SCH (20:15)
[2022-09-09] MEDS ORDERED: Vancomycin 1 GM in Premix Bag 1 BAG IVPB SCH (21:00)
[2022-09-09] MEDS: Heparin 5,000 UNITS/ML VIAL SC SCH (22:20)
[2022-09-09] MEDS ORDERED: Benzonatate 100 MG CAP PO PRN (23:03)
[2022-09-10] MEDS: Cefepime 1 GM in Sodium Chloride 0.9% 100 ML IVPB SCH ×2 (01:44→18:24)
[2022-09-10] MEDS ORDERED: Heparin 10,000 UNITS/ 10 ML VIAL ONE (08:28)
[2022-09-10] MEDS: Heparin 5,000 UNITS/ML VIAL SC SCH ×3 (08:44→19:36)
[2022-09-10 11:30] LABS: #Eosinphils 0.4 thou/uL (0.0-0.7); #Lymphocytes 0.8 thou/uL (1.20-3.40); #Monocytes 0.6 thou/uL (0.11-0.59); #Neutrophils 4.2 thou/uL (1.40-6.50); %Basophils 0.6 % (0.0-1.0); %Eosinophils 6.7 % (0.0-10.0); %Lymphocytes 13.4 % (21.0-51.0); %Monocytes 9.1 % (0.0-10.0); %Neutrophils 70.1 % (42.0-75.0); Hemoglobin 8.9 g/dL (14.0-18.0); Mean Corpuscular HGB CONC 31.5 g/dL (32.0-36.0); Mean Corpuscular Hemoglobin 33.2 pg (27.0-31.0); Mean Platelet Volume 10.5 fL (7.4-10.4); Platelet Count 128 10x3/uL (130-400); Red Blood Cell (RBC) Count 2.69 mill/uL (4.70-6.10)
[2022-09-10 11:46] LABS: Vancomycin, Random 17.7 ug/mL (See Comment)
[2022-09-10 11:52] LABS: Anion Gap 15 mmol/L (10-20); BUN (Urea Nitrogen) 47 mg/dL (8.4-25.7); Calc. Creatinine Clearance 15 mL/min (70-130); Calcium 9.1 mg/dL (7.8-10.44); Carbon Dioxide 26 mmol/L (23-31); Chloride 99 mmol/L (98-107); Estimated GFR 15; Glucose 142 mg/dL (83-110); Potassium 4.4 mmol/L (3.5-5.1); Sodium 136 mmol/L (136-145)
[2022-09-10 12:00] LABS: Troponin I 0.077 ng/mL (< 0.028)
[2022-09-10 12:10] LABS: HBSAg Index 0.24 S/CO (0-0.99); Hep B Surf Ag Non-Reactive S/CO (NonReactive)
[2022-09-10 13:25] LABS: Hep B Surf AB Non-Reactive (NonReactive)
[2022-09-10] MEDS ORDERED: Sodium Bicarbonate 2.5 MEQ/5 ML VIAL ONE (15:08)
[2022-09-10] MEDS ORDERED: Lidocaine 1% PF 5 ML VIAL ONE (15:08)
[2022-09-10] MEDS ORDERED: Vancomycin HCl 750 MG in Sodium Chloride 0.9% 250 ML 250 ML IVPB SCH (17:00)
[2022-09-11] MEDS: Cefepime 1 GM in Sodium Chloride 0.9% 100 ML IVPB SCH ×2 (00:37→14:20)
[2022-09-11] MEDS ORDERED: Heparin 10,000 UNITS/ 10 ML VIAL ONE (08:38)
[2022-09-11] MEDS: Heparin 5,000 UNITS/ML VIAL SC SCH ×2 (09:19→14:20)
[2022-09-11 16:01] VITALS: BP 108/60; TEMP 97.8
[2022-09-11] MEDS ORDERED: hydrOXYzine 25 MG TAB PO SCH (21:00)
[2022-09-17] MEDS ORDERED: EPOETIN ALFA-EPBX (ESRD) 4,000 UNIT/ML VIAL SC SCH (09:00)
== END 2022-09-11 16:17 | DRG 947 ==
LOC: ERS 11:24 → T4-B 15:42
PROVIDERS: ADMIT Internal Medicine; ATTEND Hospitalist
PROC: 0W9G3ZZ Drainage of Peritoneal Cavity, Percutaneous Approach (ICD-10-PCS; principal; 2022-09-10)
PROC: 5A1D70Z Performance of Urinary Filtration, Intermittent, Less than 6 Hours Per Day (ICD-10-PCS; 2022-09-10)
DX: R18.8 Other ascites (principal); N18.6 End stage renal disease; I13.2 Hypertensive heart and chronic kidney disease with heart failure and with stage 5 chronic kidney disease, or end stage renal disease; L03.116 Cellulitis of left lower limb; I50.32 Chronic diastolic (congestive) heart failure; E11.628 Type 2 diabetes mellitus with other skin complications; E11.22 Type 2 diabetes mellitus with diabetic chronic kidney disease; Z95.0 Presence of cardiac pacemaker; Z88.5 Allergy status to narcotic agent; Z79.01 Long term (current) use of anticoagulants; Z79.4 Long term (current) use of insulin; Z79.899 Other long term (current) drug therapy; Z90.49 Acquired absence of other specified parts of digestive tract; Z87.891 Personal history of nicotine dependence; Z99.2 Dependence on renal dialysis
CPT/HCPCS: 36415; 36416; 49083; 71045; 74177; 80048; 80053; 80202; 82042; 82140; 82553; 82945; 83605; 83690; 83880; 84157; 84484; 85025; 85060; 85652; 86140; 86706; 87040; 87070; 87205; 87340; 89051; 93005; 96365; 96366; 96367; 97139; J0692; J1644; J1815; J3370; J3490; J7050; Q9967

== ENCOUNTER 2022-11-11 12:03 | Day surgery (SDC) | payer MEDICARE | END 2022-11-11 13:00 | disposition home or self-care (01) | LOC: ULT 12:03 | PROVIDERS: ATTEND Internal Medicine Nephrology | PROC: 0W9G30Z Drainage of Peritoneal Cavity with Drainage Device, Percutaneous Approach (ICD-10-PCS; principal; 2022-11-11) | DX: R18.8 Other ascites (principal) | CPT/HCPCS: 76705 ==